=== PATIENT | male | born 1985 | race African-American/Black ===

== ENCOUNTER 2017-01-21 10:49 | Emergency (ER) | payer SELFPAY ==
[~2017-01-21] VITALS: Ht 177.8 cm; Wt 75.0 kg
[2017-01-21 12:52] VITALS: BP 124/79
[2017-01-21] MEDS ORDERED: LIDOCAINE HCL 1% 20ML VIAL (Pyxis) INJ MC ONE (13:00)
== END 2017-01-21 14:10 | disposition home or self-care (01) ==
LOC: ER 13:36
DX: L03.114 Cellulitis of left upper limb (principal); F17.200 Nicotine dependence, unspecified, uncomplicated
CPT/HCPCS: 10060; 99283; J3490; Z7610